=== PATIENT | male | born 1965 | race Two or more races ===

== ENCOUNTER 2025-02-19 11:04 | Inpatient (IN) | payer BC ==
[~2025-02-19] VITALS: Ht 165.1 cm; Wt 80.8 kg
[2025-02-19 12:02] LABS: BASOPHILS % 0.4 % (0.0-2.0); EOSINOPHILS % 0.4 % (0.0-5.0); HEMATOCRIT. 45.8 % (42.0-52.0); LYMPHOCYTES % 9.7 % (20.0-50.0); MEAN CORPUSCULAR HEMOGLOBIN 30.6 pg (28.0-32.0); MEAN CORPUSCULAR HGB CONC 32.8 g/dL (31.0-37.0); MEAN CORPUSCULAR VOLUME 93.3 fL (80.0-94.0); MEAN PLATELET VOLUME 7.2 fl (7.4-10.4); MONOCYTES % 6.2 % (2.0-8.0); NEUTROPHILS % 83.3 % (40.0-76.0); PLATELET 253 x1000/uL (130-400); RED BLOOD CELL COUNT 4.91 mill/uL (4.7-6.1); RED CELL DISTRIBUTION WIDTH 13.1 % (11.6-14.6); WHITE BLOOD COUNT 12.1 x1000/uL (4.5-11.0)
[2025-02-19 12:15] LABS: CARBON DIOXIDE 19 mEq/L (21-32); CHLORIDE 107 mEq/L (98-107); POTASSIUM 3.4 mEq/L (3.5-5.1); SODIUM 141 mEq/L (136-145)
[2025-02-19 12:16] LABS: CALCIUM 10.3 mg/dL (8.7-10.4)
[2025-02-19 12:20] LABS: CREATININE 1.1 mg/dL (0.6-1.3); GLUCOSE 132 mg/dL (70-105)
[2025-02-19 12:21] LABS: UREA NITROGEN BLOOD 14 mg/dL (9-23)
[2025-02-19 12:22] LABS: ALANINE AMINOTRANSFERASE 68 IU/L (10-49); ALBUMIN 4.2 g/dL (3.2-4.8); ASPARTATE AMINOTRANSFERASE 29 IU/L (<34)
[2025-02-19 12:23] LABS: BILIRUBIN TOTAL 0.5 mg/dL (0.1-1.0); PROTEIN TOTAL 7.2 g/dL (6.0-8.3)
[2025-02-19] MEDS: LEVETIRACETAM 500MG PREMIX 100 ML IV ONE ×2 (12:24→12:25)
[2025-02-19 13:10] LABS: TROPONIN I HIGH SENSITIVITY 41 ng/L (3.0-53)
[2025-02-19] MEDS: MAGNESIUM 2 G PREMIX 50 ML IV ONE (13:24)
[2025-02-19] MEDS ORDERED: IPRATROPIUM/ALBUTEROL 0.5-3(2.5)MG/3ML NEB HHN PRN (14:15)
[2025-02-19] MEDS ORDERED: ONDANSETRON HCL 4MG/2ML INJ IV PRN (14:15)
[2025-02-19] MEDS ORDERED: DEXTROSE 50% WATER 50ML SYRINGE IV PRN (14:15)
[2025-02-19] MEDS ORDERED: ACETAMINOPHEN 325MG TABLET PO PRN ×2 (14:15)
[2025-02-19] MEDS ORDERED: DOCUSATE SODIUM 100MG CAPSULE PO PRN (14:15)
[2025-02-19] MEDS ORDERED: GUAIFENESIN 200MG/10ML SUGAR FREE UDC PO PRN (14:15)
[2025-02-19] MEDS ORDERED: LORAZEPAM 0.5MG TABLET PO PRN (14:15)
[2025-02-19] MEDS ORDERED: CLONIDINE 0.1MG TABLET PO PRN (14:15)
[2025-02-19 15:30] VITALS: BP 124/73; PULSE 61; RESP 18; TEMP 36.2; O2SAT 98
[2025-02-19] MEDS: POTASSIUM CHLORIDE 20MEQ TABLET SR PO NR (17:03)
[2025-02-19] MEDS: BLOOD SUGAR DIAGNOSTIC STRIP TEST SCH (17:46)
[2025-02-19] MEDS: INSULIN LISPRO 100 UNITS/ML SUBCUT SCH (17:46)
[2025-02-19 17:51] VITALS: BP 127/75; PULSE 64; RESP 18; TEMP 37.3
[2025-02-19 20:00] VITALS: BP 125/81; PULSE 57; RESP 20; TEMP 36.4; O2SAT 98
[2025-02-19] MEDS: LEVETIRACETAM 500MG TABLET PO SCH (20:38)
[2025-02-19] MEDS: FAMOTIDINE 20MG TABLET PO SCH (20:38)
[2025-02-19] MEDS: ENOXAPARIN 40MG/0.4ML SYR SUBCUT SCH (20:39)
[2025-02-20] VITALS: BP 128/76; PULSE 57; RESP 18; TEMP 36.1; O2SAT 99
[2025-02-20 00:33] LABS: CREATINE KINASE 2325 IU/L (46-171)
[2025-02-20 00:43] LABS: TROPONIN I HIGH SENSITIVITY 66 ng/L (3.0-53)
[2025-02-20 04:00] VITALS: BP 127/79; PULSE 59; RESP 16; TEMP 36.4; O2SAT 98
[2025-02-20 08:46] LABS: BASOPHILS % 0.4 % (0.0-2.0); EOSINOPHILS % 0.9 % (0.0-5.0); HEMATOCRIT. 47.1 % (42.0-52.0); HEMOGLOBIN. 15.4 g/dL (14.0-18.0); LYMPHOCYTES % 12.7 % (20.0-50.0); MEAN CORPUSCULAR HEMOGLOBIN 30.6 pg (28.0-32.0); MEAN CORPUSCULAR HGB CONC 32.7 g/dL (31.0-37.0); MEAN CORPUSCULAR VOLUME 93.7 fL (80.0-94.0); MEAN PLATELET VOLUME 7.2 fl (7.4-10.4); MONOCYTES % 9.8 % (2.0-8.0); NEUTROPHILS % 76.2 % (40.0-76.0); PLATELET 203 x1000/uL (130-400); RED BLOOD CELL COUNT 5.02 mill/uL (4.7-6.1); RED CELL DISTRIBUTION WIDTH 13.7 % (11.6-14.6); WHITE BLOOD COUNT 9.2 x1000/uL (4.5-11.0)
[2025-02-20 08:53] LABS: CHLORIDE 111 mEq/L (98-107); SODIUM 144 mEq/L (136-145)
[2025-02-20 08:54] LABS: CALCIUM 9.7 mg/dL (8.7-10.4); CARBON DIOXIDE 23 mEq/L (21-32)
[2025-02-20 08:57] LABS: TROPONIN I HIGH SENSITIVITY 50 ng/L (3.0-53)
[2025-02-20 08:59] LABS: GLUCOSE 92 mg/dL (70-105); UREA NITROGEN BLOOD 11 mg/dL (9-23)
[2025-02-20 09:01] LABS: PHOSPHORUS 3.1 mg/dL (2.5-4.9)
[2025-02-20] MEDS: ASPIRIN 81MG TABLET PO SCH (10:30)
[2025-02-20] MEDS: SODIUM CHLORIDE 0.9% 1,000 ML IV SCH (10:30)
[2025-02-20 10:32] LABS: CREATINE KINASE 1678 IU/L (46-171)
[2025-02-20 13:00] VITALS: BP 126/76; PULSE 58; RESP 16; TEMP 36.6; O2SAT 97
[2025-02-20 16:00] VITALS: BP 119/77; PULSE 54; RESP 16; TEMP 36.4; O2SAT 98
[2025-02-20 20:00] VITALS: BP_SYST 138; BP_SYST 140; BP_SYST 146; BP_DIAS 84; BP_DIAS 86; BP_DIAS 97; PULSE 58; RESP 18; TEMP 36.4; O2SAT 98
[2025-02-20 20:01] LABS: CLARITY URINE CLEAR (CLEAR); COLOR URINE YELLOW (YELLOW); GLUCOSE URINE NEGATIVE (NEGATIVE); KETONES URINE NEGATIVE (NEGATIVE); LEUKOCYTE ESTERASE URINE NEGATIVE (NEGATIVE); NITRITE URINE NEGATIVE (NEGATIVE); OCCULT BLOOD URINE NEGATIVE (NEGATIVE); PH URINE 5.5 (4.5-8.0); PROTEIN URINE NEGATIVE (NEGATIVE); SPECIFIC GRAVITY URINE 1.015 (1.005-1.030); UROBILINOGEN URINE 0.2 E.U./dL (0.2-1.0)
[2025-02-20 20:16] LABS: *AMPHETAMINES SCREEN URINE NEGATIVE (NEGATIVE); *BARBITURATES SCREEN URINE NEGATIVE (NEGATIVE); *BENZODIAZEPINES SCREEN URINE NEGATIVE (NEGATIVE); *COCAINE SCREEN URINE NEGATIVE (NEGATIVE); METHADONE URINE SCREEN NEGATIVE (NEGATIVE)
[2025-02-20 20:17] LABS: CANNABINOID URINE SCREEN NEGATIVE (NEGATIVE); ECSTASY MDMA SCREEN URINE NEGATIVE (NEGATIVE); OPIATES URINE SCREEN NEGATIVE (NEGATIVE); PHENCYCLIDINE URINE SCREEN NEGATIVE (NEGATIVE)
[2025-02-21] VITALS: BP_SYST 135; BP_SYST 139; BP_SYST 140; BP_DIAS 86; BP_DIAS 87; BP_DIAS 88; PULSE 62; RESP 18; TEMP 36.6; O2SAT 100
[2025-02-21 08:00] VITALS: BP 148/85; PULSE 60; RESP 18; TEMP 36.8; O2SAT 98
[2025-02-21] MEDS: LACTATED RINGERS 1,000 ML IV SCH (08:28)
[2025-02-21 08:41] LABS: CHLORIDE 110 mEq/L (98-107); POTASSIUM 4.3 mEq/L (3.5-5.1); SODIUM 143 mEq/L (136-145)
[2025-02-21 08:42] LABS: CARBON DIOXIDE 27 mEq/L (21-32)
[2025-02-21 08:43] LABS: CALCIUM 9.7 mg/dL (8.7-10.4)
[2025-02-21 08:47] LABS: GLUCOSE 82 mg/dL (70-105)
[2025-02-21 08:48] LABS: UREA NITROGEN BLOOD 12 mg/dL (9-23)
[2025-02-21 08:49] LABS: CREATINE KINASE 811 IU/L (46-171)
[2025-02-21 10:25] VITALS: BP 148/85; PULSE 60; TEMP 98.2; O2SAT 98
== END 2025-02-21 11:15 | disposition home or self-care (01) | DRG 101 ==
LOC: ER 11:04 → 6WST 12:31 → EDBEDREQ 12:40 → EDBEDREQTM 12:40 → 6WST 02-20 09:47
PROVIDERS: ADMIT Internal Medicine; ATTEND Internal Medicine
DX: R56.9 Unspecified convulsions (principal); M62.82 Rhabdomyolysis; R55 Syncope and collapse; E16.2 Hypoglycemia, unspecified; E87.6 Hypokalemia; D72.829 Elevated white blood cell count, unspecified; F41.9 Anxiety disorder, unspecified; Z79.82 Long term (current) use of aspirin; Z79.899 Other long term (current) drug therapy; Z87.891 Personal history of nicotine dependence
CPT/HCPCS: 36415; 80048; 80053; 80061; 80305; 81003; 82550; 82962; 83036; 83735; 84100; 84484; 85025; 93005; 99291; G0378; J1650; J1953; J3475; J7030; J7120